=== PATIENT | male | born 1990 | race African-American/Black ===

== ENCOUNTER 2017-07-24 21:16 | Emergency (ER) | payer BC, OTHER ==
--- NOTE | 2017-07-24 22:56 | RADIOLOGY REPORT (SQ) ---
EXAM DESCRIPTION: XR CHEST 1 VIEW COMPLETED DATE/TME: 07/24/2017 22:21 CLINICAL HISTORY: 27 years, Male, cough COMPARISON: None FINDINGS: Cardiac silhouette is within normal limits. There is no focal parenchymal or pleural disease. There is no acute osseous process visualized. IMPRESSION: No evidence of acute cardiopulmonary disease.
[2017-07-24 23:47] LABS: APPEARANCE,URINE CLEAR; BILIRUBIN,URINE NEGATIVE (NEGATIVE); COLOR,URINE YELLOW; GLUCOSE, URINE NEGATIVE (NEGATIVE); KETONES,URINE NEGATIVE (NEGATIVE); LEUKOCYTE ESTERASE,URINE NEGATIVE (NEGATIVE); NITRITE,URINE NEGATIVE (NEGATIVE); PROTEIN,URINE NEGATIVE (NEGATIVE); URINE SPECIFIC GRAVITY 1.019
[2017-07-24 23:50] LABS: HEMATOCRIT 41.3 % (37.9-51.0); MEAN CORPUSCULAR HEMOGLOBIN 29.9 pg (27.0-33.4); MEAN CORPUSCULAR HGB CONC 33.8 g/dL (32.0-36.0); MEAN CORPUSCULAR VOLUME 88 fl (80-97); PLATELET COUNT 206 10^3/uL (150-450); RED BLOOD COUNT 4.68 10^6/uL (4.35-5.55); RED CELL DISTRIBUTION WIDTH 12.2 % (11.5-14.0); WHITE BLOOD COUNT 6.5 10^3/uL (4.0-10.5)
[2017-07-25 00:11] LABS: ALANINE AMINOTRANSFERASE 20 U/L (21-72); ALBUMIN 4.2 g/dL (3.5-5.0); ALKALINE PHOSPHATASE 82 U/L (38-126); ANION GAP 10 (5-19); ASPARTATE AMINO TRANSFERASE 21 U/L (17-59); BILIRUBIN,DIRECT 0.2 mg/dL (0.0-0.4); BILIRUBIN,TOTAL 0.8 mg/dL (0.2-1.3); BLOOD UREA NITROGEN 12 mg/dL (7-20); CALCIUM 9.3 mg/dL (8.4-10.2); CARBON DIOXIDE 29 mmol/L (22-30); CHLORIDE 105 mmol/L (98-107); GLUCOSE 88 mg/dL (75-110); POTASSIUM 4.1 mmol/L (3.6-5.0); SODIUM 144.2 mmol/L (137-145); TOTAL PROTEIN 7.3 g/dL (6.3-8.2)
--- NOTE | 2017-07-25 00:37 | ER Document Report ---
ED General - General Chief Complaint: Dizziness Stated Complaint: DIZZINESS Time Seen by Provider: 07/24/17 22:21 Notes: Patient is a 27-year-old male with a past medical history of morbid obesity who presents with lightheadedness and near syncope. The patient reports that over the past 3-4 weeks he has had intermittent episodes in which he becomes lightheaded and feels like he might pass out. He states this only occurs after he has been standing for prolonged periods of time, usually at work. He notes that his symptoms do resolve after he sits down or drinks fluids. He has not actually passed out. He denies any associated chest pain, shortness of breath, vomiting, and at the time of my evaluation denies any symptoms of any kind. He has no history of DVT, pulmonary embolus, dysrhythmia, or a family history of sudden cardiac . TRAVEL OUTSIDE OF THE [place] IN LAST 30 DAYS: No - Related Data Allergies/Adverse Reactions: No Known Allergies Allergy (Verified 01/13/15 04:33) Past Medical History - General Information source: Patient - Social History Smoking Status: Never Smoker Frequency of alcohol use: Occasional Drug Abuse: None Lives with: Alone Family History: Reviewed & Not Pertinent Patient has suicidal ideation: No Patient has homicidal ideation: No Renal/ Medical History: Denies: Hx Peritoneal Dialysis - Immunizations Immunizations up to date: Yes Hx Diphtheria, Pertussis, Tetanus Vaccination: No Review of Systems - Review of Systems Notes: Constitutional: Negative for fever. HENT: Negative for sore throat. Eyes: Negative for visual changes. Cardiovascular: Negative for chest pain. Positive for intermittent lightheadedness Respiratory: Negative for shortness of breath. Gastrointestinal: Negative for abdominal pain, vomiting or diarrhea. Genitourinary: Negative for dysuria. Musculoskeletal: Negative for back pain. Skin: Negative for rash. Neurological: Negative for headaches, weakness or numbness. 10 point ROS negative except as marked above and in HPI. Physical Exam - Vital signs Vitals: Temp Pulse Resp BP Pulse Ox 98.1 F 66 16 159/86 H 98 07/24/17 21:27 07/24/17 21:27 07/24/17 21:27 07/24/17 21:27 07/24/17 21:27 Interpretation: Hypertensive Notes: PHYSICAL EXAMINATION: GENERAL: Well-appearing, well-nourished and in no acute distress. HEAD: Atraumatic, normocephalic. EYES: Pupils equal round and reactive to light, extraocular movements intact, sclera anicteric, conjunctiva are normal. ENT: nares patent, oropharynx clear without exudates. Moderately dry mucous membranes. NECK: Normal range of motion, supple without lymphadenopathy LUNGS: Breath sounds clear to auscultation bilaterally and equal. No wheezes rales or rhonchi. HEART: Regular rate and rhythm without murmurs ABDOMEN: Soft, nontender, normoactive bowel sounds. No guarding, no rebound. No masses appreciated. EXTREMITIES: Normal range of motion, no pitting or edema. No cyanosis. NEUROLOGICAL: No focal neurological deficits. Moves all extremities spontaneously and on command. PSYCH: Normal mood, normal affect. SKIN: Warm, Dry, normal turgor, no rashes or lesions noted. Course - Re-evaluation Re-evalutation: 07/25/17 00:37 Patient presents with signs and symptoms most consistent with orthostatic hypotension. The patient has had multiple episodes where he becomes lightheaded after long periods of standing which improved after he sits down. On examination the patient is very well in appearance, vitals within normal limits, although does clinically appear dehydrated with dry oral and cracked lips. His urine is somewhat concentrated. The remainder of his laboratories are broadly unremarkable. He denies any chest pain or shortness of breath. I do not clinically suspect acute pulmonary embolus, ACS, dysrhythmia, or any other life threatening etiology as the origin of today's presentation. At this time will discharge with return precautions and follow-up recommendations. Verbal discharge instructions given a the bedside and opportunity for questions given. Medication warnings reviewed. Patient is in agreement with this plan and has verbalized understanding of return precautions and the need for primary care follow-up in the next 24-72 hours. - Vital Signs Vital signs: Temp Pulse Resp BP Pulse Ox 97.9 F 71 20 151/93 H 97 07/25/17 00:51 07/25/17 00:51 07/25/17 00:51 07/25/17 00:51 07/25/17 00:51 - Laboratory Result Diagrams: 07/24/17 23:40 07/24/17 23:40 Laboratory results interpreted by me: 07/24/17 07/24/17 23:17 23:40 ALT 20 L Urine Urobilinogen 2.0 H - Diagnostic Test Radiology reviewed: Image reviewed, Reports reviewed Radiology results interpreted by me: 07/25/17 00:40 Chest x-ray: No acute infiltrate or pneumothorax Discharge - Discharge Clinical Impression: Lightheadedness, Orthostatic hypotension Condition: Good Disposition: HOME, SELF-CARE Additional Instructions: You were seen today for lightheadedness/dizziness. The exact cause of your symptoms is unclear but your workup here is reassuring without any concerning findings. Please follow closely with your primary care physician in the next 1- 3 days. Return if you pass out, have additional episodes of lightheadedness, develop weakness/numbness, have persistent vomiting, chest pain, shortness of breath or any other symptoms that are concerning to you
[2017-07-25 00:53] VITALS: BP 151/93
== END 2017-07-25 00:53 | disposition home or self-care (01) ==
LOC: ER 21:16
DX: I95.1 Orthostatic hypotension (principal)
CPT/HCPCS: 36415; 71045; 80053; 81001; 83036; 85027; 99284